=== PATIENT | female | born 1940 | race Caucasian/White ===

== ENCOUNTER 2023-12-23 14:54 | Emergency (ER) | payer MEDICARE ==
[2023-12-23 15:16] VITALS: TEMP 97.8
--- NOTE | 2023-12-23 15:44 | ED ---
Lower Extremity Injury HPI - General Chief Complaint: Extremity Injury, Lower Stated Complaint: fall Time Seen by Provider: 12/23/23 15:05 Source: patient, EMS, RN notes reviewed Mode of arrival: EMS Limitations: no limitations - History of Present Illness Initial Comments: This is an 83-year-old female who presents to the emergency department for a fall. Patient fell off of a step on her deck and landed on a cane. States that all of the impact was to her right femur. Denies hitting her head or sustaining any loss of consciousness. Not taking any blood thinners. She has not been able to ambulate since the event. EMS put the patient's leg in a traction splint. She was given fentanyl by EMS on arrival with improvement in pain. She does however have nausea and feelings of acid reflux. MD Complaint: hip injury, thigh injury - Related Data Home Medications Medication Instructions Recorded Confirmed Calcium Carbonate [Calcium] 600 mg PO DAILY 12/23/23 12/23/23 Denosumab [Prolia] 1 dose SQ Q182D 12/23/23 12/23/23 Esomeprazole Magnesium [NexIUM] 40 mg PO DAILY 12/23/23 12/23/23 Multivitamins, Thera [Multivitamin 1 tab PO DAILY 12/23/23 12/23/23 (formulary)] Allergies Allergy/AdvReac Type Severity Reaction Status Date / Time Penicillins Allergy Rash/Hives/ Verified 12/23/23 16:18 Itching Review of Systems ROS Statement: Those systems with pertinent positive or pertinent negative responses have been documented in the HPI. ROS Other: All systems not noted in ROS Statement are negative. Past Medical History Past Medical History: GERD/Reflux Past Surgical History: Hernia Repair Smoking Status: Never smoker Past Alcohol Use History: None Reported Past Drug Use History: None Reported General Exam Limitations: no limitations General appearance: alert, in no apparent distress Head exam: Present: atraumatic, normocephalic, normal inspection Respiratory exam: Present: normal lung sounds bilaterally. Absent: respiratory distress, wheezes, rales, rhonchi, stridor Cardiovascular Exam: Present: regular rate, normal rhythm, normal heart sounds. Absent: systolic murmur, diastolic murmur, rubs, gallop, clicks Extremities exam: Present: other (Shortening to the right lower extremity. 2+ DP and PT pulses.) Neurological exam: Present: alert, oriented X3, CN II-XII intact Psychiatric exam: Present: normal affect, normal mood Skin exam: Present: warm, dry, intact, normal color. Absent: rash Course Vital Signs 12/23/23 12/23/23 12/23/23 14:56 16:37 18:14 Temperature 97.8 F Pulse Rate 109 H 109 H 95 Respiratory 16 18 18 Rate Blood Pressure 139/88 132/70 130/78 O2 Sat by Pulse 94 L 99 99 Oximetry Medical Decision Making - Medical Decision Making This is an 83-year-old female who presents to the emergency department for right leg pain after a fall. Was pt. sent in by a medical professional or institution? @ -No Did you speak to anyone other than the patient for history? @ -No Did you review nursing and triage notes? @ -Yes, and I agree, it is accurate with regards to the patient's symptoms. Were old charts reviewed? @ -No Differential Diagnosis? @ -Differential Musculoskeletal: Muscular strain, contusion, ligament sprain, fracture, arthritis, septic arthritis, bursitis, cellulitis, muscle spasm, nerve compression, DVT, arterial occlusion, herpes zoster, electrolyte abnormality, tumor.... This is not meant to be in all inclusive list EKG interpreted by me (3pts min.)? @ -Not obtained X-rays interpreted by me (1pt min.)? @ -Chest x-ray obtained, my interpretation identifies no localized consolidations or infiltrates. X-ray of the right hip and femur obtained. My interpretation identifies a mid femoral fracture. X-ray of the pelvis obtained. My interpretation identifies no evidence of any fractures. CT interpreted by me (1pt min.)? @ -Not obtained U/S interpreted by me (1pt. min.)? @ -Not obtained What testing was considered but not performed? (CT, X-rays, U/S, labs)? Why? @ -None What meds were considered but not given? Why? @ -None Did you discuss the management of the patient with other professionals? @ -Yes, Saul Castro PA-C, with [facility], who requested transfer to another facility for a higher level of care. Dr. Crowder at [facility] is the accepting ED provider for ED to ED transfer. Did you reconcile home meds? @ -No Was smoking cessation discussed for >3mins.? @ -No Was critical care preformed (if so, how long)? @ -No Were there social determinants of health that impacted care today? How? (Homelessness, low income, unemployed, alcoholism, drug addiction, transportation, low edu. Level, literacy, decrease access to med. care, nursing home, rehab)? @ -No Was there de-escalation of care discussed even if they declined? (Discuss DNR or withdrawal of care, Hospice)? @ -No What co-morbidities impacted this encounter? (DM, HTN, Smoking, COPD, CAD, Cancer, CVA, Hep., AIDS, mental health diagnosis, sleep apnea, morbid obesity)? @ -GERD Was patient admitted / discharged? @ -Transferred. X-ray of the chest and right femur obtained. X-ray of the right femur demonstrates an acute right mid femoral diaphysis fracture with shortening and displacement up to 45 mm. Chest x-ray demonstrates interstitial lung disease without acute process. Case discussed with orthopedics at our facility, who requested transfer out for a higher level of care. Patient and her family live near [place], [place], and requested transferred to a facility there. Patient accepted as an ED to ED transfer at [facility]. Dr. Crowder is the accepting ED provider. Traction splint was applied by EMS prior to arrival and left in place during transport to [place]. Pace catheter was also initiated. CBC, CMP, PT/INR, and PTT ordered. Results pending at note completion but will be sent with the patient for transport. Undiagnosed new problem with uncertain prognosis? @ -None Drug Therapy requiring intensive monitoring for toxicity (Heparin, Nitro, Insulin, Cardizem)? @ -None Were any procedures done? @ -None Diagnosis/symptom? @ -Fall, right femoral fracture Acute, or Chronic, or Acute on Chronic? @ -Acute Uncomplicated (without systemic symptoms) or Complicated (systemic symptoms)? @ -Uncomplicated Side effects of treatment? @ -None Exacerbation, Progression, or Severe Exacerbation] @ -Not applicable Poses a threat to life or bodily function? @ -Yes, this will impact her ability to ambulate. This case was discussed in detail with the attending ED physician, Dr. Ennis. Presentation, findings, and treatment plan discussed in detail as well. - Lab Data Result diagrams: 12/23/23 16:05 04/28/24 16:05 Lab Results 12/23/23 12/23/23 12/23/23 Range/Units 16:05 16:05 16:05 WBC 9.6 (3.8-10.6) k/uL RBC 3.97 (3.80-5.40) m/uL Hgb 12.4 (11.4-16.0) gm/dL Hct 37.8 (34.0-46.0) % MCV 95.2 (80.0-100.0) fL MCH 31.2 (25.0-35.0) pg MCHC 32.7 (31.0-37.0) g/dL RDW 14.0 (11.5-15.5) % Plt Count 204 (150-450) k/uL MPV 8.1 Neutrophils % 78 % Lymphocytes % 15 % Monocytes % 4 % Eosinophils % 2 % Basophils % 0 % Neutrophils # 7.5 (1.3-7.7) k/uL Lymphocytes # 1.4 (1.0-4.8) k/uL Monocytes # 0.4 (0-1.0) k/uL Eosinophils # 0.2 (0-0.7) k/uL Basophils # 0.0 (0-0.2) k/uL PT 10.6 (10.0-12.5) sec INR 1.0 (<1.2) APTT 29.7 (22.0-30.0) sec Sodium 137 (137-145) mmol/L Potassium 3.6 (3.5-5.1) mmol/L Chloride 107 (98-107) mmol/L Carbon Dioxide 25 (22-30) mmol/L Anion Gap 5 mmol/L BUN 16 (7-17) mg/dL Creatinine 0.54 (0.52-1.04) mg/dL Est GFR (CKD-EPI)AfAm >90 (>60 ml/min/1.73 sqM) Est GFR (CKD-EPI)NonAf 89 (>60 ml/min/1.73 sqM) Glucose 109 H (74-99) mg/dL Calcium 8.0 L (8.4-10.2) mg/dL Total Bilirubin 0.5 (0.2-1.3) mg/dL AST 20 (14-36) U/L ALT 15 (4-34) U/L Alkaline Phosphatase 69 (38-126) U/L Total Protein 6.4 (6.3-8.2) g/dL Albumin 3.7 (3.5-5.0) g/dL - Radiology Data Radiology results: report reviewed, image reviewed Disposition Clinical Impression: Fall, Right femoral fracture Disposition: OTHER INSTITUTION NOT DEFINED Referrals: Nonstaff,Physician [Primary Care Provider] - 1-2 days - Out of Hospital Transfer - Req. Specs Out of Hospital Transfer - Requested Specifics: Other Emergency Center ([facility] [place]
[2023-12-23] MEDS: ONDANSETRON 4 MG/2 ML VIAL IVP STA ×2 (15:48→17:52)
[2023-12-23] MEDS: MORPHINE SULFATE 4 MG/ML SYRINGE IVP STA (15:48)
[2023-12-23] MEDS: FAMOTIDINE 20 MG/2 ML VIAL IV STA (15:49)
[2023-12-23] MEDS: SODIUM CHLORIDE 0.9% 1,000 ML IV STA (15:49)
--- NOTE | 2023-12-23 15:58 | XR ---
EXAMINATION TYPE: XR chest 1V DATE OF EXAM: 12/23/2023 3:36 PM CLINICAL INDICATION:Female, 83 years old with history of FALL; COMPARISON: None TECHNIQUE: XR chest 1V Frontal view of the chest. FINDINGS: Lungs/Pleura: There is no evidence of pleural effusion, focal consolidation, or pneumothorax. Pulmonary vascularity: Unremarkable. Heart/mediastinum: Cardiomediastinal silhouette is unremarkable. Musculoskeletal: No acute osseous pathology. Other findings: None IMPRESSION: Interstitial lung disease changes without acute pulmonary process.
--- NOTE | 2023-12-23 16:00 | XR ---
EXAMINATION TYPE: XR femur RT DATE OF EXAM: 12/23/2023 3:36 PM CLINICAL INDICATION:Female, 83 years old with history of Fall, injury; COMPARISON: None TECHNIQUE: XR femur RT examined in Frontal and lateral projections. FINDINGS/IMPRESSION: Acute right mid femoral diaphysis fracture with shortening and displacement up to 45 mm. No additiona l fractures visualized.
--- NOTE | 2023-12-23 16:40 | XR ---
EXAMINATION TYPE: XR pelvis AP view DATE OF EXAM: 12/23/2023 4:32 PM CLINICAL INDICATION:Female, 83 years old with history of Fall; COMPARISON: None TECHNIQUE: The pelvis was examined in a single projection. FINDINGS: There is no evidence of fracture or dislocation. There is no soft tissue abnormality. No a bnormal calcifications are present. The spine appears intact. The hips appear intact. Osteophyte form ation of the superior acetabulum bilaterally with mild joint space narrowing. IMPRESSION: 1. No acute osseous pathology. 2. Mild degeneration changes of the hip.
[2023-12-23 16:41] LABS: Basophils % (A) 0 %; Eosinophils # (A) 0.2 k/uL (0-0.7); Eosinophils % (A) 2 %; HCT 37.8 % (34.0-46.0); HGB 12.4 gm/dL (11.4-16.0); Lymphocytes # (A) 1.4 k/uL (1.0-4.8); Lymphocytes % (A) 15 %; MCH 31.2 pg (25.0-35.0); MCHC 32.7 g/dL (31.0-37.0); MCV 95.2 fL (80.0-100.0); Mean Platelet Volume 8.1; Monocytes # (A) 0.4 k/uL (0-1.0); Monocytes % (A) 4 %; Neutrophils # (A) 7.5 k/uL (1.3-7.7); Neutrophils % (A) 78 %; Platelet Count 204 k/uL (150-450); RBC 3.97 m/uL (3.80-5.40); WBC 9.6 k/uL (3.8-10.6)
[2023-12-23 16:51] LABS: Partial Thromboplastin Time 29.7 sec (22.0-30.0); Prothrombin Time 10.6 sec (10.0-12.5)
[2023-12-23 16:55] LABS: ALT 15 U/L (4-34); AST 20 U/L (14-36); African American GFR (CKD) >90 (>60 ml/min/1.73 sqM); Albumin 3.7 g/dL (3.5-5.0); Alkaline Phosphatase 69 U/L (38-126); Anion Gap 5 mmol/L; Blood Urea Nitrogen 16 mg/dL (7-17); Carbon Dioxide 25 mmol/L (22-30); Chloride 107 mmol/L (98-107); Glucose 109 mg/dL (74-99); Non-African American GFR(CKD) 89 (>60 ml/min/1.73 sqM); Potassium 3.6 mmol/L (3.5-5.1); Sodium 137 mmol/L (137-145); Total Bilirubin 0.5 mg/dL (0.2-1.3); Total Protein 6.4 g/dL (6.3-8.2)
[2023-12-23 17:20] VITALS: RESP 18
[2023-12-23] MEDS: HYDROmorphone 1 MG/ML 1 ML SYRINGE IVP STA (17:47)
[2023-12-23 18:41] VITALS: BP 130/78; PULSE 95
== END 2023-12-23 18:15 | disposition other institution (70) ==
LOC: EC 14:54
DX: S72.91XA Unspecified fracture of right femur, initial encounter for closed fracture (principal); W10.9XXA Fall (on) (from) unspecified stairs and steps, initial encounter; Z88.0 Allergy status to penicillin
CPT/HCPCS: 99285; 96374; 96375 ×3; 96376; 96361 ×2; 36415; 80053; 85025; 85610; 85730; 72170; 73552; 71045; 51702; J2270; J2405; J3490; J1170